=== PATIENT | female | born 1985 | race Caucasian/White ===

== ENCOUNTER 2016-09-08 10:31 | Emergency (ER) | payer MEDICAID ==
[2016-09-08 10:36] VITALS: BP 125/89
[2016-09-08] MEDS ORDERED: KETOROLAC TROMETHAMINE INJ/PF 30 MG/1 ML SDV IM ONE (11:04)
--- NOTE | 2016-09-08 11:12 | ER Document Report ---
HPI - HPI Pain Level: 5 Notes: Patient is a 31-year-old female presents the ED complaining of left lower neck pain, left scapular pain 1 month but has been increasing slowly over the last couple weeks. Patient denies any known injury. Patient states that laying supine does increase her symptoms at times. She has not tried any conservative measures for her symptoms. Patient states that they just moved to the area so she does not have a PCM at this time. Patient still eating and drinking without any difficulties. Denies any drug allergies, daily medications, significant past medical history. Patient denies any smoking or illicit drug use. Patient states that she has difficulty twisting her head to the left because of the pain and moving her shoulder up to range of motion because of pain in that area. Patient states that she feels like a burning tingling to the area. Denies any loss of control of bowel or bladder, urinary retention, saddle anesthesia, muscle paralysis/weakness. Denies any headache, fever, URI, ear pain, dizziness, changes in vision/mentation/speech/hearing, sore throat, dysphagia, dysphasia, chest pain, palpitations, syncope, cough, wheeze, shortness of breath, dyspnea, abdominal pain, nausea/vomiting/diarrhea, dysuria , joint pains otherwise, or rash. - ROS Notes: REVIEW OF SYSTEMS: CONSTITUTIONAL : Denies fever, chills, or sweats. Denies recent illness. EENT: Denies eye, ear, throat, or mouth pain or symptoms. Denies nasal or sinus congestion or discharge. Denies throat, tongue, or mouth swelling or difficulty swallowing. CARDIOVASCULAR: Denies chest pain. Denies palpitations or racing or irregular heart beat. Denies ankle edema. RESPIRATORY: Denies cough, cold, or chest congestion. Denies shortness of breath, difficulty breathing, or wheezing. GASTROINTESTINAL: Denies abdominal pain or distention. Denies nausea, vomiting , or diarrhea. Denies blood in vomitus, stools, or per rectum. Denies black, tarry stools. Denies constipation. GENITOURINARY: Denies difficulty urinating, painful urination, burning, frequency, blood in urine, or discharge. MUSCULOSKELETAL: see hpi SKIN: Denies rash, lesions or sores. NEUROLOGICAL: Denies confusion or altered mental status. Denies passing out or loss of consciousness. Denies dizziness or lightheadedness. Denies headache. Denies weakness or paralysis or loss of use of either side. Denies problems with gait or speech. Following PSYCHIATRIC: Denies anxiety or stress. Denies depression, suicidal ideation, or homicidal ideation. ALL OTHER SYSTEMS REVIEWED AND NEGATIVE. Dictation was performed using [employer] voice recognition software - DERM Skin Color: Normal Past Medical History - Social History Smoking Status: Never Smoker Family History: Reviewed & Not Pertinent Patient has suicidal ideation: No Patient has homicidal ideation: No Renal/ Medical History: Denies: Hx Peritoneal Dialysis Vertical Provider Document - CONSTITUTIONAL Agree With Documented VS: Yes Notes: PHYSICAL EXAMINATION: GENERAL: Well-appearing, well-nourished and in no acute distress. HEAD: Atraumatic, normocephalic. EYES: Pupils equal round and reactive to light, extraocular movements intact, sclera anicteric, conjunctiva are normal. No nystagmus. ENT: EAC clear b/l. TM's intact b/l without erythema, fluid, or perforation. Nares patent and without discharge. oropharynx clear without exudates. No tonsilar hypertrophy or erythema. Moist mucous membranes. No sinus tenderness. NECK: LROM to left rotation; FROM otherwise, supple without lymphadenopathy. No rigidity. Spurling negative. Kernig/brudzinski negative. + tenderness to C6-7 Lt> midline. + muscle spasming to the left c-paraspinal mm , left trap, and left scapular area. LUNGS: Breath sounds clear to auscultation bilaterally and equal. No wheezes rales or rhonchi. HEART: Regular rate and rhythm without murmurs, rubs, gallops. Musculoskeletal: Upper/Lower Ext b/l: FROM to passive/active. Strength 5+/5. No focal deficits noted. Extremities: No cyanosis, clubbing, or edema b/l. Peripheral pulses 2+. Capillary refill less than 3 seconds. NEUROLOGICAL: MMSE intact. Cranial nerves grossly intact. Normal speech, normal gait. Normal sensory, motor exams. reflexes 2+ b/l PSYCH: Normal mood, normal affect. SKIN: Warm, Dry, normal turgor, no rashes or lesions noted. - INFECTION CONTROL TRAVEL OUTSIDE OF THE [place] IN LAST 30 DAYS: No - RESPIRATORY O2 Sat by Pulse Oximetry: 100 Course - Re-evaluation Re-evalutation: 09/08/16 12:10 Patient is an afebrile, well-hydrated, 31-year-old female presents the ED with left cervicalgia, muscle spasming. Vitals are stable. PE otherwise unremarkable for any focal neurological deficits. C-spine x-ray unremarkable for any acute pathology. Toradol 15 mg given IM today. I will send her home with baclofen and meloxicam to take as directed. Stretches and exercises reviewed. Conservative measures otherwise for symptoms as reviewed. Recheck/ establish with a PCM this week. Consider consult with physical therapy, orthopedics, chiropractics. Return to ED with any worsening/concerning symptoms otherwise as reviewed. Patient is in agreement. - Vital Signs Vital signs: Temp Pulse Resp BP Pulse Ox 98.7 F 97 16 125/89 H 100 09/08/16 10:34 09/08/16 10:34 09/08/16 10:34 09/08/16 10:34 09/08/16 10:34 Discharge - Discharge Clinical Impression: Cervicalgia, Muscle spasm Condition: Stable Disposition: HOME, SELF-CARE Additional Instructions: Rest, Ice Take meds as directed, watch drowsiness, do not operate heavy machinery on muscle relaxer Tylenol/ibuprofen as needed Light stretches daily Strength exercises as able Moist heat and massage may help F/u/establish with your PCM in 2-3 days for a recheck (Most urgent cares also performed primary care in this area) Consider consult(s) with Orthopedics, physical therapy, chiropractics for ongoing/worsening symptoms Return to the ED with any worsening symptoms and/or development of fever, headache, chest pain, palpitations, syncope, shortness of breath, trouble breathing, abdominal pain, n/v/d, blood in stool/urine, loss of control of bowel /bladder, urinary retention, muscle weakness/paralysis, numbness/tingling, or other worsening symptoms that are concerning to you. Prescriptions: Baclofen [Baclofen 10 mg Tablet] 5 mg PO BID PRN #10 tablet PRN Reason: Meloxicam 7.5 mg PO BID PRN #20 tablet PRN Reason: Forms: Elevated Blood Pressure Referrals: [facility] [Provider Group] - Follow up as needed [facility] [Provider Group] - Follow up as needed [facility] [Provider Group] - Follow up as needed [facility] [Provider Group] - Follow up as needed
--- NOTE | 2016-09-08 12:02 | RADIOLOGY REPORT (SQ) ---
EXAM DESCRIPTION: CERV SP 4 OR 5 VIEWS COMPLETED DATE/TIME: 09/08/2016 11:29 am REASON FOR STUDY: Left inferior C-spine tenderness, mm spasming COMPARISON: None. NUMBER OF VIEWS: Five views. TECHNIQUE: AP, lateral, obliques and odontoid radiographic images acquired of the cervical spine. LIMITATIONS: None. FINDINGS: MINERALIZATION: Normal. ALIGNMENT: Anatomic. VERTEBRAE: Vertebral bodies of normal height. DISCS: No significant osteophytes or sclerosis. Disc height maintained. FORAMINA: No osteophytes or foraminal narrowing. LATERAL AND POSTERIOR ELEMENTS: Facets, lateral masses and spinous processes without significant find ings. HARDWARE: None in the spine. SOFT TISSUES: No masses or calcifications. Lung apices clear. OTHER: No other significant finding. IMPRESSION: NO SIGNIFICANT RADIOGRAPHIC FINDING IN THE CERVICAL SPINE. TECHNICAL DOCUMENTATION: JOB ID: [id number] [employer]- All Rights Reserved
== END 2016-09-08 12:15 | disposition home or self-care (01) ==
LOC: ER 10:31
DX: M54.2 Cervicalgia (principal); M62.838 Other muscle spasm
CPT/HCPCS: 99283; 96372; 72050; J1885